=== PATIENT | male | born 1995 | race Caucasian/White ===

== ENCOUNTER 2018-08-16 19:05 | Emergency (ER) | payer BC ==
[2018-08-16 21:00] VITALS: BP 120/69; TEMP 99.5; O2SAT 99
--- NOTE | 2018-08-16 21:34 | ED.PDOC ---
History of Present Illness - General Chief Complaint: Burn Stated Complaint: Burn Time Seen by Provider: 08/16/18 21:31 Source: patient Exam Limitations: no limitations - History of Present Illness Initial Comments: Patient presents with a burn on the back of his left leg that he has had for over two weeks. He is concerned that it might be infected. 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 No other complaints. Timing/Duration: other - 2-3 weeks Severity: mild Improving Factors: nothing Worsening Factors: nothing Associated Symptoms: denies symptoms Review of Systems - Review of Systems Constitutional: States: no symptoms reported EENTM: States: no symptoms reported Respiratory: States: no symptoms reported Cardiology: States: no symptoms reported Gastrointestinal/Abdominal: States: no symptoms reported Genitourinary: States: no symptoms reported Musculoskeletal: States: no symptoms reported Skin: States: see HPI Neurological: States: see HPI Endocrine: States: no symptoms reported Hematologic/Lymphatic: States: no symptoms reported Past Medical History (General) - Patient Medical History Hx Seizures: No Hx Stroke: No Hx Dementia: No Hx Asthma: No Hx of COPD: No Hx Cardiac Disorders: No Hx Congestive Heart Failure: No Hx Pacemaker: No Hx Hypertension: No Hx Thyroid Disease: No Hx Diabetes: No Hx Gastroesophageal Reflux: No Hx Renal Disease: No Hx Cancer: No Hx of HIV: No Hx Hepatitis C: No Hx MRSA: No Surgical History: no surgical history - Vaccination History Hx Tetanus, Diphtheria Vaccination: Yes Hx Influenza Vaccination: No Hx Pneumococcal Vaccination: No Immunizations Up to Date: No - Social History Hx Tobacco Use: No Hx Chewing Tobacco Use: No Feels Threatened In Home Enviroment: No Feels Threatened In a Relationship: No Hx Physical Abuse: No Hx Emotional Abuse: No Hx Suspected Abuse: No - Female History Patient is a Female of Child Bearing Age (10 -59 yrs old): No Patient : No Family Medical History - Family History Mother Family History: Unknown Physical Exam - Physical Exam General Appearance: Alert Skin Exam: other - 12 cm x 2 cm transverse superficial abrasion on the posterior left thigh. NTTP. Well healing. No exudates. Scar tissue and granulation tissue well formed. Departure - Departure Clinical Impression: Burn injury Disposition: Discharge to Home or Self Care Condition: Good Departure Forms: ED Discharge - Pt. Copy, Patient Portal Self Enrollment Diet: resume usual diet Activity: increase activity as tolerated Additional Instructions: Apply topical neosporin twice per day. Keep the wound clean. Return for pus, increase redness or pain, or temperature above 100.4.
== END 2018-08-16 22:07 | disposition home or self-care (01) ==
LOC: ER 19:05
DX: T24.012A Burn of unspecified degree of left thigh, initial encounter (principal); S70.312A Abrasion, left thigh, initial encounter; X58.XXXA Exposure to other specified factors, initial encounter; Y92.9 Unspecified place or not applicable